=== PATIENT | female | born 1955 | race Caucasian/White ===

== ENCOUNTER 2020-04-18 22:39 | Emergency (ER) | payer MEDICARE, SELFPAY ==
[2020-04-18 23:00] VITALS: BP 168/86; PULSE 80; RESP 16; TEMP 37; O2SAT 98
[2020-04-18 23:02] VITALS: BP 168/86; PULSE 85; RESP 19; TEMP 36.4; O2SAT 98
--- NOTE | 2020-04-18 23:05 | ED.FEMALEGU ---
HPI - Female Genitourinary General Chief complaint: Urogenital-Female Stated complaint: allergic reaction? Time Seen by Provider: 04/18/20 23:05 Source: patient and family Mode of arrival: ambulatory Limitations: no limitations History of Present Illness HPI Narrative: Patient is a 64-year-old female with a history of vaginal prolapse and hypothyroidism who presents for evaluation of vaginal irritation. Patient states she has had itching, white discharge from the vagina over the past 24 hours, so thought she was getting a yeast infection. Patient used suppository [id number] Monistat and then felt like the itchiness increased. Patient thought perhaps she was having an allergic reaction as there was a burning type pain. Patient since feels slightly improved after taking a bath and showering. She presents now with urinary frequency. Patient denies any vaginal bleeding or other vaginal discharge. Patient denies fever, chills, vomiting or abdominal pain. Related Data Allergies Allergy/AdvReac Type Severity Reaction Status Date / Time guaifenesin Allergy Unknown Cramping Verified 04/18/20 23:03 of the Muscles Penicillins Allergy Unknown Hives Verified 04/18/20 23:03 Review of Systems Review of Systems: Narrative: CONSTITUTIONAL: Denies fever CARDIOVASCULAR: Denies chest pain RESPIRATORY: Denies cough or dyspnea. GASTROINTESTINAL: Denies abdominal pain SKIN: Denies rash : Reports vaginal irritation, itching, reports dysuria and urinary frequency MUSCULOSKELETAL: Denies back pain NEUROLOGIC: Denies headache PMFSH Past Medical History Medical History Hypothyroidism Vaginal prolapse Surgical History Surgical History (Updated 04/18/20 @ 23:41 by Marnie Putnam MD) History of bladder surgery Family History Family History (Updated 02/28/16 @ 23:19 by DOCTOR UNKNOWN) Mother Family history of malignant neoplasm of breast in first degree relative Family history of heart disease in male family member before age 55 Family history of thyroid disease Other Family history of chronic obstructive pulmonary disease Social History Social History Smoking status: Never smoker Gender identity (if verbalized by the patient): Female Exam Narrative: Exam Narrative: GENERAL: Awake, alert, conversant HEAD: Normocephalic, atraumatic. EYES: PERRLA and EOMI. ENT: Nares clear, no rhinorrhea or epistaxis. Mucous membranes moist. NECK: Supple. CHEST: No respiratory distress, breathing even and non labored HEART: Regular rate, sinus rhythm ABDOMEN:Non distended, non tender : Labia majora are erythematous and tender bilaterally. No mucopurulent discharge. There is vaginal prolapse. This is nontender. There is mild excoriation to the right perineum. No abscess. No vaginal bleeding. EXTREMITIES: Normal range of motion. No edema. SKIN: Warm, dry, no rash. NEURO:No focal deficits. Alert and oriented x3 Course Vital Signs Vital signs: Vital Signs Temperature 37.0 C 04/18/20 23:00 Pulse Rate 80 04/18/20 23:00 Respiratory Rate 16 04/18/20 23:00 Blood Pressure 168/86 H 04/18/20 23:00 Pulse Oximetry 98 04/18/20 23:00 Temperature 36.4 C 04/18/20 23:02 Pulse Rate 85 04/18/20 23:02 Respiratory Rate 19 04/18/20 23:02 Blood Pressure 168/86 H 04/18/20 23:02 Pulse Oximetry 98 04/18/20 23:02 MDM - Female Genitourinary MDM Narrative Medical decision making narrative: Patient physical exam findings consistent with Val, also some component of vaginitis. There is some mild excoriation where the patient has been itching in the vaginal area. No sign of cervicitis, no purulent discharge, patient does not have risk factors for this. No back pain or fever to be suggestive of pyelonephritis. Will treat patient with oral Diflucan given she may have had a reaction to the M
[2020-04-19] MEDS: diphenhydrAMINE HCl CAP 25 MG CAPSULE PO (00:06)
[2020-04-19] MEDS: FLUCONAZOLE 100 MG TABLET 150 MG PO (00:06)
[2020-04-19 00:28] LABS: Add Urine Microscopic? YES; Appearance Urine Cloudy (Clear); Bacteria Urine Trace /hpf; Bilirubin Urine Negative (Negative); Blood Urine 1+ (Negative); Color Urine Straw (Yellow); Glucose Urine UA Negative (Negative); Ketones Urine Negative (Negative); Leukocyte Esterase Ur 3+ LEU/UL (Negative); Nitrate Urine Negative (Negative); Protein Urine Negative (Negative); Squamous Epithelial Cell Urine Rare /hpf (Few); Urobilinogen Urine Negative mg/dL (<2.0)
[2020-04-19 00:29] LABS: Specific Grav Ur 1.004 (1.001-1.035)
[2020-04-19 00:39] VITALS: BP 156/60; PULSE 86; RESP 16; TEMP 36.9; O2SAT 100
== END 2020-04-19 00:44 | disposition home or self-care (01) ==
PROVIDERS: Emergency Provider Emergency Medicine; PCP Family Medicine
DX: N39.0 Urinary tract infection, site not specified (principal); N76.0 Acute vaginitis; E03.9 Hypothyroidism, unspecified; N81.10 Cystocele, unspecified
CPT/HCPCS: 81001; 99283; A9270; J1100

== ENCOUNTER 2020-06-25 09:36 | Outpatient (CLI) | payer MEDICARE, SELFPAY ==
--- NOTE | 2020-06-25 10:00 | ECHO_ITS ---
Patient Info Name: Johanny Tejada Age: 65 years : 1955 Gender: Female Ht: 60 in Wt: 160 lbs BSA: 1.78 m2 HR: 85 bpm BP: 144 / 91 mmHg Heart Rhythm: Sinus Rhythm Technical Quality: Good Exam Date: 06/25/2020 10:02 AM Exam Location: [facility] Patient Status: Outpatient Admit Date: 06/25/2020 Staff Ordering Physician: Lynn, Ita Esquivel MD Postal Service Window Clerk: Jarvis Pham RDCS Attending Provider: Lynn, Ita Esquivel MD Referring Physician: Chaparro GENAO; Exam Type: CA echo doppler color flow Study Info Indications 786.09 - Other specified symptoms involving respiratory system (shortness of breath) Complete two-dimensional, color flow and Doppler transthoracic echocardiogram is performed. History/Risk Factors Interstitial lung disease; SOB. Summary 1. Complete two-dimensional, color flow and Doppler transthoracic echocardiogram is performed. 2. Normal LV size, mild LVH, normal LV systolic function, EF 60-65%. Grade 1 diastolic dysfunction. No significant valvular abnormality. Unable to assess RVSP due to inadequate TR jet velocity. Sinus rhythm. Left Ventricle Left ventricular chamber dimension is normal. Left ventricular systolic function is normal, estimated at 60-65%. There is mildly increased left ventricular wall thickness. The left ventricular diastolic function is grade I diastolic dysfunction. Right Ventricle Right ventricular chamber dimension is normal. Right ventricular systolic function is normal. Left Atria Left atrial chamber dimension is normal. Right Atria Right atrial chamber dimension is normal. Aortic Valve The aortic valve is normal. There is no aortic valve stenosis. Pulmonic Valve The pulmonic valve is normal. Mitral Valve The mitral valve has normal leaflets. Tricuspid Valve The tricuspid valve leaflets are normal. There is trace tricuspid valve regurgitation. Pericardium/Pleural The pericardium appears normal. Inferior Vena Cava Normal inferior vena cava with >50% collapse upon inspiration consistent with normal right atrial pressure, 8 mmHg. Aorta The aortic root size at the sinus of Valsalva is normal. Left Ventricular Outflow Tract Name Value Normal LVOT 2D LVOT Diameter 2.0 cm LVOT Doppler LVOT Peak Gradient 4 mmHg LVOT Mean Gradient 2 mmHg LVOT VTI 18 cm LVOT VTI/AV VTI Ratio 0.7 LVOT Stroke Volume 56 ml LVOT CO 5.1 l/min LVOT CI 2.8 l/min/m2 Mitral Valve Name Value Normal MV Doppler MV Decel [place] 230 cm/s2 MV PHT 66 ms MV Area (PHT) 3.3 cm2
== END 2020-06-25 09:37 | disposition home or self-care (01) ==
PROVIDERS: PCP Family Medicine; Visit Provider Family Medicine
DX: R06.09 Other forms of dyspnea (principal); J84.9 Interstitial pulmonary disease, unspecified
CPT/HCPCS: 93306

== ENCOUNTER 2020-07-24 14:03 | Outpatient (CLI) | payer MEDICARE, SELFPAY ==
--- NOTE | 2020-07-29 12:53 | P.PCNPFT_ITS ---
PFT Interpretation PFT Interpretation: Full pulmonary function testing 07/24/2020. 1. Flows and volumes both appear normal. 2. Diffusing capacity appears normal. 3. Post bronchodilator data was not obtained given the normality of this data. This appears to be a normal pulmonary function testing study. Elder Hill MD MSc FACP [facility]
== END 2020-07-24 14:04 | disposition home or self-care (01) ==
PROVIDERS: PCP Family Medicine; Visit Provider Family Medicine
DX: Z82.5 Family history of asthma and other chronic lower respiratory diseases (principal)
CPT/HCPCS: 94375; 94726; 94729

== ENCOUNTER → 2020-08-16 11:16 | Outpatient (CLI) | payer MEDICARE, SELFPAY ==
--- NOTE | ~2020-08-16 | MM_ITS ---
EXAMINATION: MM screening betsy BI w felceia HISTORY: Screening TECHNIQUE: Craniocaudal and mediolateral oblique 3-D tomosynthesis images were obtained and synthetic 2-D images were generated. CAD analysis was submitted and interpreted. COMPARISON: Comparison to multiple prior studies sequentially, with oldest reviewed study dated 09/2014. BREAST PARENCHYMAL COMPOSITION: There are scattered areas of fibroglandular density. FINDINGS: There is no evidence of suspicious mass, calcification, or architectural distortion to sugg est malignancy in either breast. There has been no suspicious interval change. IMPRESSION: 1. No mammographic evidence of malignancy. 2. Recommend routine screening mammography in one year. BI-RADS Category 1: Negative Reviewed, dictated and finalized at location A. R [employer]
== END ==
PROVIDERS: PCP Family Medicine; Visit Provider Family Medicine
DX: Z12.31 Encounter for screening mammogram for malignant neoplasm of breast (principal)
CPT/HCPCS: 77063; 77067

== ENCOUNTER → 2022-02-11 10:04 | Outpatient (CLI) | payer MEDICARE, SELFPAY ==
--- NOTE | ~2022-02-11 | MM_ITS ---
EXAMINATION: MM screening betsy BI w felecia HISTORY: Screening mammogram, family history of breast cancer in her mother. TECHNIQUE: Craniocaudal and mediolateral oblique 3-D tomosynthesis images were obtained and synthetic 2-D images were generated. CAD analysis was submitted and interpreted. COMPARISON: 08/16/2020, 02/27/2019, 01/10/2018 BREAST PARENCHYMAL COMPOSITION: There are scattered areas of fibroglandular density. FINDINGS: There is no suspicious mass, calcification, or architectural distortion to suggest malignan cy in either breast. There has been no suspicious interval change. IMPRESSION: 1. No mammographic evidence of malignancy. 2. Recommend routine screening mammography in one year. BI-RADS Category 1: Negative Reviewed, dictated and finalized at location A.
== END ==
PROVIDERS: PCP Family Medicine; Visit Provider Family Medicine
DX: Z12.31 Encounter for screening mammogram for malignant neoplasm of breast (principal)
CPT/HCPCS: 77063; 77067

== ENCOUNTER → 2023-01-06 12:13 | Outpatient (CLI) | payer MEDICARE, SELFPAY ==
--- NOTE | ~2023-01-06 | US_ITS ---
EXAMINATION: US transvaginal DATE: 01/06/2023 12:39 INDICATION: Pelvic pain TECHNIQUE: Multiple endovaginal sonographic images of the pelvis were obtained. COMPARISON: None. FINDINGS: The uterus measures 5.0 x 3.1 x 3.7 cm. The endometrial complex measures 3 mm. There is a s omewhat heterogeneous appearance to the cervix The ovaries are not visualized however no adnexal abno rmality is seen. There is no free fluid in the pelvis. IMPRESSION: 1. Heterogeneous appearance of the cervix of unclear etiology. Direct visualization is recommended. Reviewed, dictated and finalized at location F. IMPRESSION: 1. Heterogeneous appearance of the cervix of unclear etiology. Direct visualiza tion is recommended.
== END ==
PROVIDERS: PCP Family Medicine; Visit Provider Obstetrics & Gynecology Gynecology
DX: N95.9 Unspecified menopausal and perimenopausal disorder (principal); R10.2 Pelvic and perineal pain; T65.91XA Toxic effect of unspecified substance, accidental (unintentional), initial encounter
CPT/HCPCS: 76830

== ENCOUNTER → 2023-07-13 13:36 | Outpatient (CLI) | payer MEDICARE, SELFPAY ==
--- NOTE | ~2023-07-13 | MM_ITS ---
EXAMINATION: MM screening betsy BI w felecia HISTORY: Screening TECHNIQUE: Craniocaudal and mediolateral oblique 3-D tomosynthesis images were obtained and synthetic 2-D images were generated. CAD analysis was submitted and interpreted. COMPARISON: Comparison to multiple prior studies sequentially, with oldest reviewed study dated 09/2014. BREAST PARENCHYMAL COMPOSITION: There are scattered areas of fibroglandular density. FINDINGS: There is no evidence of suspicious mass, calcification, or architectural distortion to sugg est malignancy in either breast. There has been no suspicious interval change. IMPRESSION: 1. No mammographic evidence of malignancy. 2. Recommend routine screening mammography in one year. BI-RADS Category 1: Negative Reviewed, dictated and finalized at location A. HONER
== END ==
PROVIDERS: PCP Family Medicine; Visit Provider Family Medicine
DX: Z12.31 Encounter for screening mammogram for malignant neoplasm of breast (principal)
CPT/HCPCS: 77063; 77067

== ENCOUNTER → 2023-08-25 12:04 | Outpatient (CLI) | payer MEDICARE, SELFPAY ==
--- NOTE | ~2023-08-25 | DEXA_ITS ---
Bone Density Report Name: ANKUR ARMSTRONG Age: 68 Sex: Female Ethnicity: White Date of : 1955 Indication: osteopenia; postmenopausal Referring Provider: NAMRATA, URSZULA Persley Study: Bone densitometry was performed. Exam Date: August 25, 2023 Accession number: [id number] Bone Density: Region BMD T-score Z-score Classification AP Spine (L1, L2, L4) 0.958 -0.7 1.4 Normal Femoral Neck (Left) 0.874 0.2 2.0 Normal Total Hip (Left) 1.105 1.3 2.9 Normal Femoral Neck (Right) 0.875 0.2 2.0 Normal Total Hip (Right) 1.131 1.5 3.1 Normal Total Hip Mean 1.118 1.4 3.0 Normal World Health Organization criteria for BMD impression classify patients as: Normal (T-score at or above -1.0), Osteopenia (T-score between -1.0 and -2.5), or Osteoporosis (T-score at or below -2.5). 10-year Fracture Risk: FRAX not reported because: All T-scores for Spine Total, Hip Total, Femoral Neck at or above -1.0 Previous Exams: Region Exam Age BMD T-score BMD Change BMD Change Date g/cm2 vs Baseline vs Previous AP Spine(L1, L2, L4) 08/25/2023 68 0.958 -0.7 0.078* 0.046* 01/10/2018 62 0.912 -1.1 0.032* 0.087* 03/17/2014 58 0.825 -1.9 -0.055* -0.055* 10/28/2011 56 0.880 -1.4 Total Hip(Left) 08/25/2023 68 1.105 1.3 0.013 0.028* 01/10/2018 62 1.076 1.1 -0.015 -0.033* 03/17/2014 58 1.109 1.4 0.018 0.018 10/28/2011 56 1.092 1.2 Total Hip(Right) 08/25/2023 68 1.131 1.5 0.032* 0.026 01/10/2018 62 1.105 1.3 0.006 0.021 03/17/2014 58 1.084 1.2 -0.015 -0.015 10/28/2011 56 1.099 1.3 *Denotes significance at 95% confidence level, LSC for AP Spine = 0.022 g/cm2, LSC for Total Hip = 0.027 g/cm2 Clinical Information Provided by Patient: Has used the following medications: HRT (i.e. estrogen/hormone therapy), Vitamin D, BIO-IDENTICAL HRT AND THYROID MED Patient maximum height was 60.0 Menopause Age: 38 Drinks caffeinated beverages Onset of menses at age 10 Number of children 2 Impression: The patient has normal bone mass. No significant bone loss was observed. Discussion: BONE DENSITY IS ABOVE THE MINIMUM DESIRABLE LEVEL AT ALL SKELETAL SITES TESTED. This patient?s bone mineral density is above the minimum desirable level (T-score -1.0 or better) at all sites
== END ==
PROVIDERS: PCP Family Medicine; Visit Provider Family Medicine
DX: Z78.0 Asymptomatic menopausal state (principal)
CPT/HCPCS: 77080

== ENCOUNTER 2025-03-15 12:29 | Outpatient (CLI) | payer MEDICARE, SELFPAY ==
--- NOTE | ~2025-03-15 | MM_ITS ---
EXAMINATION: MM screening betsy BI w felecia HISTORY: Screening TECHNIQUE: Craniocaudal and mediolateral oblique 3-D tomosynthesis images were obtained and synthetic 2-D images were generated. CAD analysis was submitted and interpreted. COMPARISON: Comparison to multiple prior studies sequentially, with oldest reviewed study dated 09/25. BREAST PARENCHYMAL COMPOSITION: Not dense: There are scattered areas of fibroglandular density. FINDINGS: There is no evidence of suspicious mass, calcification, or architectural distortion to sugg est malignancy in either breast. There has been no suspicious interval change. IMPRESSION: 1. No mammographic evidence of malignancy. 2. Recommend routine screening mammography in one year. BI-RADS Category 1: Negative Reviewed, dictated and finalized at location A.
== END 2025-03-15 12:30 | disposition home or self-care (01) ==
LOC: MICIMG 12:29
PROVIDERS: PCP Family Medicine; Visit Provider Student in an Organized Health Care Education/Training Program
DX: Z12.31 Encounter for screening mammogram for malignant neoplasm of breast (principal)
CPT/HCPCS: 77063; 77067